=== PATIENT | female | born 1965 | race Two or more races ===

== ENCOUNTER → 2024-05-09 | Outpatient (CLI) | payer MEDICAID, SELFPAY ==
--- NOTE | 2024-05-09 11:30 | XR_ITS ---
Examination: Breast ultrasound, unilateral, left complete Date and time of exam: May 09, 2024 1137 hours INDICATIONS: Mammogram February 24, 2024 25 mm round mass upper outer left breast anterior depth, mild left breast pain one year Technique: Real-time guerrero scale ultrasonographic imaging performed left breast including all 4 quadrants as well as nipple retroareolar and axillary region. Findings: 1:00 oval mass glandular tissue, mildly hyperechoic, 1.8 x 1.3 x 2.1 cm IMPRESSION: BI-RADS Category 3: Probably benign findings One additional 4-6 month follow-up left breast sonography strongly recommended to document stability of fibroglandular tissue versus nodule 1:00 position left breast
== END | disposition home or self-care (01) ==
PROVIDERS: PCP Family Medicine; Referring Provider Family Medicine; Visit Provider Family Medicine
DX: R92.8 Other abnormal and inconclusive findings on diagnostic imaging of breast (principal)
CPT/HCPCS: 76641

== ENCOUNTER → 2024-05-24 | Outpatient (CLI) | payer MEDICAID, SELFPAY ==
--- NOTE | 2024-05-24 09:30 | XR_ITS ---
Examination: Diagnostic digital mammography, unilateral, left Computer aided detection 3-D breast Tomosynthesis, unilateral Date and time of exam: May 24, 2024 0927 hours INDICATIONS: Mammogram February 24, 2024 25 mm round mass partially circumscribed upper outer left breast anterior depth Technique: Nonmagnified MLO, CC views of the left breast have been obtained, reconstructed from 3-D Tomosynthesis images. R2 computer aided detection program utilized for evaluation of suspicious masses and/or abnormal calcifications. 3-D Tomosynthesis images obtained. Findings: The breast is heterogeneously dense, which may obscure small masses Focal asymmetry does remain, 25 mm 12:00 position left breast anterior depth, please see the left breast sonogram report May 09, 2024 indicating 1:00 mass versus glandular tissue Impression: BI-RADS category 3: Probably benign findings Six-month left mammogram 6 month left breast sonogram follow-up strongly recommended to document stability of focal asymmetry 12 to 1:00 position left breast
== END | disposition home or self-care (01) ==
LOC: CDIM 09:18
PROVIDERS: Referring Provider Obstetrics & Gynecology; Visit Provider Obstetrics & Gynecology
DX: R92.332 Mammographic heterogeneous density, left breast (principal); N64.89 Other specified disorders of breast
CPT/HCPCS: 77061; 77065; G0279

== ENCOUNTER → 2024-12-07 | Outpatient (CLI) | payer MEDICAID, SELFPAY ==
--- NOTE | 2024-12-07 09:30 | XR_ITS ---
Examination: Breast ultrasound, unilateral, left complete Date and time of exam: December 07, 2024 1030 hours INDICATIONS: Left breast pain beginning several months ago, mammogram May 24, 2024 focal asymmetry left breast 12:00 position 25 mm Technique: Real-time guerrero scale ultrasonographic imaging performed left breast including all 4 quadrants as well as nipple retroareolar and axillary region. Findings: No cystic or solid mass IMPRESSION: BI-RADS Category 1: Negative study
--- NOTE | 2024-12-07 10:00 | XR_ITS ---
Examination: Diagnostic digital mammography, unilateral, left Computer aided detection 3-D breast Tomosynthesis, unilateral Date and time of exam: December 07, 2024 1048 hours Mammogram February 24, 2024 25 mm round mass upper outer left breast anterior depth Technique: Nonmagnified MLO, CC views of the left breast have been obtained, reconstructed from 3-D Tomosynthesis images. R2 computer aided detection program utilized for evaluation of suspicious masses and/or abnormal calcifications. 3-D Tomosynthesis images obtained. Findings: The breast is heterogeneously dense, which may obscure small masses 12:00 focal asymmetry remains left breast measuring 25 mm Impression: BI-RADS category 0: Incomplete: Need additional imaging evaluation Recommend this patient return for repeat left breast sonography with the radiologist in attendance
== END | disposition home or self-care (01) ==
PROVIDERS: PCP Specialist; Referring Provider Obstetrics & Gynecology; Visit Provider Obstetrics & Gynecology
DX: R92.8 Other abnormal and inconclusive findings on diagnostic imaging of breast (principal)
CPT/HCPCS: 76641; 77061; 77065; G0279

== ENCOUNTER → 2025-01-27 | Outpatient (CLI) | payer MEDICAID, SELFPAY ==
--- NOTE | 2025-01-27 10:30 | XR_ITS ---
Examination: Breast ultrasound, unilateral, left complete Date and time of exam: January 27, 2025, 10:50 AM INDICATIONS: Mammogram December 07, 2024 12:00 focal asymmetry left breast 25 mm Technique: Real-time guerrero scale ultrasonographic imaging performed left breast including all 4 quadrants as well as nipple retroareolar and axillary region. Findings: 12:00 probable glandular tissue 27 x 16 mm 10:00 cyst 4 x 3 mm IMPRESSION: BI-RADS Category 3: Probably benign findings Recommend 1 additional 6 month left breast sonogram follow-up to document probably benign glandular tissue in the 12:00 position left breast
== END | disposition home or self-care (01) ==
PROVIDERS: PCP Obstetrics & Gynecology; Referring Provider Obstetrics & Gynecology; Visit Provider Obstetrics & Gynecology
DX: R92.8 Other abnormal and inconclusive findings on diagnostic imaging of breast (principal)
CPT/HCPCS: 76641